=== PATIENT | male | born 1930 | race Caucasian/White ===

== ENCOUNTER → 2017-01-30 13:36 | Outpatient (CLI) | payer MEDICARE ==
[2009-11-18 06:49] VITALS: BMI 31.5
== END | disposition home or self-care (01) ==
LOC: D.US 01-20 14:30
DX: R60.0 Localized edema (principal)

== ENCOUNTER → 2018-12-19 10:12 | Outpatient (CLI) | payer MEDICARE ==
[2009-11-18 06:49] VITALS: BMI 31.5
--- NOTE | 2018-12-25 09:52 | EC ---
PATIENT:LIANG VAIL DATE OF SERVICE: 12/19/18 SEX: M MEDICAL RECORD: [id number] DATE OF : 30 LOCATION:D[facility] AGE OF PATIENT: 88 ADMISSION DATE: 12/19/18 REFERRING PHYSICIAN: INTERPRETING PHYSICIAN: ERIN WELCH MD ECHOCARDIOGRAM REPORT ECHO CHARGES 4 ECHO COMPLETE Date: 12/19/18 CLINICAL DIAGNOSIS: MURMUR ECHOCARDIOGRAPHIC MEASUREMENTS (adult normal given) AC root (d.<3.7cm) 3.5 cm LV Septum d (<1.2 cm> 1.6 cm Valve Excursion 1.7 cm LV Septum (systole) 1.7 cm Left Atria (s.<4.0cm> 4.1 cm LVPW d(<1.2cm) 1.1 cm RV (d.<2.3cm) 3.2 cm LVPW (sytole) 1.5 cm LV diastole(<5.6CM) 4.7 cm MV E-F(>70mm/sec) cm LV systole 3.7 cm LVOT Diameter 2.2 cm MV exc.(>10mm) cm Est.ejection fraction (50-75%) % DOPPLER: LVIT cm/sec A 57 cm/sec E 49 cm/sec LA cm/sec RVSP 32.5 mmHg LVOT 79 cm/sec AOP1/2T m/s Asc. Ao 106 cm/sec RVOT 49 cm/sec RA cm/sec PA 66 cm/sec AV Gradient Peak 4.5 mmHg AV Mean 2.6 mmHg AV Area 2.9 cm MV Gradient Peak 2.6 mmHg MV Mean 1.3 mmHg MV Area cm COMMENTS: Buildings [employer] Coordinator: Murtaza BERMEOPAOLA NATHANIEL Account Support Rep: 1 Dr. Welch TAPE# PACS Pericardial Effusion N DATE OF SERVICE: 12/19/2018 FINDINGS: 1. Left ventricular chamber size is within normal limits. Left ventricular systolic function is mildly depressed at 40%. 2. Left atrium is enlarged at 4.1 cm. Right atrium and right ventricular chamber sizes are as well mildly dilated. 3. Valvular structures have normal structure and motion. 4. Doppler interrogation reveals mild aortic insufficiency, mild mitral regurgitation, mild tricuspid regurgitation, no other valvular insufficiency or ECHOCARDIOGRAM REPORT [id number] LIANG VAIL stenosis. Pulmonary systolic pressure is estimated 33 mmHg. 5. No evidence of pericardial effusion or left ventricular thrombus. TRANSINT:[id number] Voice Confirmation ID: [id number] DOCUMENT ID: [id number] ERIN WELCH MD at 0952 CC: [id number] DICTATION DATE: 12/19/18 1156 CREDIT PRODUCTS OFFICER: 12/19/18 1205 DEP CLI 12/19/18 [place] [id number] [place] [id number]
== END | disposition home or self-care (01) ==
LOC: D.ECHO 10:12
PROVIDERS: ATTEND Family Medicine
DX: R01.1 Cardiac murmur, unspecified (principal)

== ENCOUNTER 2019-02-05 23:10 | Emergency (ER) | payer MEDICARE ==
[~2019-02-05] VITALS: Ht 177.8 cm; Wt 72.7 kg
[2019-02-05 23:12] VITALS: Ht 177.8 cm; Wt 72.7 kg
[2019-02-06 00:56] LABS: BASOPHILS 0.3 % (0-2); EOSINOPHILS 0.3 % (0-7); HEMATOCRIT 38.5 % (42.0-54.0); HEMOGLOBIN 13.2 g/dL (13.5-17.5); IMMATURE GRANULOCYTES 0.3 % (0-5); LYMPHOCYTES 9.9 % (15-50); MCH 32.4 pg (26.0-34.0); MCHC 34.3 g/dL (31.0-37.0); MCV 94.6 fL (80.0-100.0); MEAN PLATELET VOLUME 11.3 fL (7.4-10.4); MONOCYTES 6.1 % (2-11); NEUTROPHILS 83.1 % (40-80); PLATELET COUNT 216 10x3/uL (130-400); RBC 4.07 10x6/uL (4.20-6.10); RDW 13.1 % (11.5-14.5); WBC 11.7 10x3/uL (4.8-10.8)
[2019-02-06 00:58] LABS: ALBUMIN 3.5 g/dL (3.4-5.0); ALKALINE PHOSPHATASE 55 U/L (46-116); ALT (SGPT) 20 U/L (10-68); BILIRUBIN - TOTAL 0.46 mg/dL (0.2-1.3); CALC OSMOLALITY 282 mosm/kg (275-300); CALCIUM 8.1 mg/dL (8.5-10.1); CARBON DIOXIDE 25.8 mmol/L (21.0-32.0); CHLORIDE - SERUM 107 mmol/L (98-107); CREATININE - SERUM 0.9 mg/dL (0.6-1.3); GLUCOSE 123 mg/dL (74-106); POTASSIUM - SERUM 4.3 mmol/L (3.5-5.1); PROTEIN - SERUM 6.9 g/dL (6.4-8.2); SODIUM 141 mmol/L (136-145); UREA NITROGEN 15 mg/dL (7-18); eGFR NON AFRICAN AMERICAN 84 mL/min (90-120)
[2019-02-06] MEDS ORDERED: NAMENDA10 MG PO (01:08)
[2019-02-06] MEDS ORDERED: KEFLEX500 MG PO (01:34)
[2019-02-06] MEDS ORDERED: VOLTAREN75 MG PO (01:34)
[2019-02-06] MEDS ORDERED: TYLENOL W/CODEI1 TAB PO (01:34)
[2019-02-06 02:39] VITALS: BP 158/72
== END 2019-02-06 02:39 | disposition home or self-care (01) ==
LOC: D.ER 23:10
PROVIDERS: Family Medicine
DX: S61.412A Laceration without foreign body of left hand, initial encounter (principal); W25.XXXA Contact with sharp glass, initial encounter; I10 Essential (primary) hypertension

== ENCOUNTER 2019-02-26 16:21 | Emergency (ER) | payer MEDICARE ==
[~2019-02-26] VITALS: Ht 177.8 cm; Wt 68.2 kg
[~2019-02-26 16:21] MED LIST: KEFLEX500 MG PO; NAMENDA10 MG PO; TYLENOL W/CODEI1 TAB PO; VOLTAREN75 MG PO
[2019-02-26 16:34] VITALS: Ht 177.8 cm; Wt 68.2 kg
[2019-02-26] MEDS ORDERED: KEFLEX500 MG PO (16:59)
[2019-02-26 19:15] VITALS: BP 182/75
== END 2019-02-26 19:22 | disposition home or self-care (01) ==
LOC: D.ER 16:21
DX: Z48.00 Encounter for change or removal of nonsurgical wound dressing (principal)